=== PATIENT | female | born 1990 | race Caucasian/White ===

== ENCOUNTER 2016-09-01 08:28 | Emergency (ER) | payer OTHER ==
[~2016-09-01 08:28] MED LIST: PHENERGAN25 MG PR
[2016-09-01 09:09] LABS: BILIRUBIN 1+ mg/dL (NEGATIVE); BLOOD 1+ Ery/uL (NEGATIVE); CLARITY CLEAR (CLEAR); COLOR AMBER (YELLOW); GLUCOSE (U) NORMAL (NORMAL); KETONE (U) 2+ (MODERATE) mg/dL (NEGATIVE); LEUKOCYTES NEGATIVE Leu/uL (NEGATIVE); NITRITE NEGATIVE (NEGATIVE); PROTEIN 1+ mg/dL (NEGATIVE); SPECIFIC GRAVITY >=1.030 (1.001-1.030)
[2016-09-01 09:12] LABS: BACTERIA TRACE; URINARY WBC RARE
[2016-09-01 09:13] LABS: MUCOUS TRACE
[2016-09-01 09:23] LABS: BASOPHIL 0.3 % (0-2); EOSINOPHIL 0 % (0-5); HCT 45.4 % (37.0-47.0); LYMPHOCYTE 13.8 % (15-48); MCH 30.8 pg (25.0-31.0); MCHC 35.2 g/dL (32.0-36.0); MCV 87.5 fL (78.0-100.0); MONOCYTE 5.1 % (0-12); MPV 9.3 fL (6.0-9.5); NEUTROPHIL 80.8 % (41-80); PLT 412 K/uL (150-400); RBC 5.19 M/uL (4.20-5.40); RDW 13.7 % (11.5-14.0); WBC 13.1 K/uL (4.0-10.5)
[2016-09-01 09:44] LABS: ALBUMIN 4.6 g/dL (3.5-5.0); BILIRUBIN - TOTAL 0.9 mg/dL (0.1-1.0); CREATININE 0.7 mg/dL (0.5-1.0); POTASSIUM 3.6 mmol/L (3.5-5.1); TOTAL PROTEIN 7.6 g/dL (6.4-8.3)
== END 2016-09-01 10:45 | disposition home or self-care (01) ==
LOC: FER 08:28
PROVIDERS: Emergency Medicine
DX: K31.84 Gastroparesis (principal); K81.9 Cholecystitis, unspecified
CPT/HCPCS: 36415; 80053; 81001; 83690; 84443; 85025; J2405

== ENCOUNTER 2016-09-24 12:43 | Emergency (ER) | payer OTHER ==
[2016-09-24 13:36] LABS: BILIRUBIN 1+ mg/dL (NEGATIVE); BLOOD 2+ Ery/uL (NEGATIVE); CLARITY CLEAR (CLEAR); COLOR YELLOW (YELLOW); GLUCOSE (U) NORMAL (NORMAL); KETONE (U) 2+ (MODERATE) mg/dL (NEGATIVE); LEUKOCYTES NEGATIVE Leu/uL (NEGATIVE); NITRITE NEGATIVE (NEGATIVE); PROTEIN 1+ mg/dL (NEGATIVE); SPECIFIC GRAVITY >=1.030 (1.001-1.030); pH 5.5 (5.0-9.0)
[2016-09-24 13:45] LABS: AMORPHOUS URATES CRYSTALS TRACE; BACTERIA 1+
[2016-09-24 13:54] LABS: BASOPHIL 0.1 % (0-2); EOSINOPHIL 0.2 % (0-5); HCT 44.5 % (37.0-47.0); HGB 15.9 g/dl (12.5-16.0); LYMPHOCYTE 6.9 % (15-48); MCH 30.5 pg (25.0-31.0); MCHC 35.7 g/dL (32.0-36.0); MCV 85.4 fL (78.0-100.0); MONOCYTE 2.5 % (0-12); MPV 9.5 fL (6.0-9.5); NEUTROPHIL 90.3 % (41-80); PLT 498 K/uL (150-400); RBC 5.21 M/uL (4.20-5.40); RDW 12.8 % (11.5-14.0)
[2016-09-24 13:56] LABS: WBC 18.3 K/uL (4.0-10.5)
[2016-09-24 14:12] LABS: ALBUMIN 5.3 g/dL (3.5-5.0); BILIRUBIN - TOTAL 0.7 mg/dL (0.1-1.0); CREATININE 0.7 mg/dL (0.5-1.0); GLOBULIN (CALCULATION) 2.7 g/dL (2.2-4.2); POTASSIUM 3.5 mmol/L (3.5-5.1)
[2016-09-24 14:28] LABS: LACTIC ACID 2.2 mmol/L (0.5-2.2)
[2016-09-24 14:40] LABS: BAND 2 % (0-10); LYMPHOCYTE(M) 6 % (15-48); MONOCYTE(M) 1 % (0-12); NEUTROPHILS(M) 91 % (41-80); PLATELET ESTIMATE NORMAL; PLATELET MORPHOLOGY NORMAL; TOTAL CELL COUNT 100
[2016-09-24 18:20] LABS: AMPHETAMINES NEGATIVE (NEGATIVE); BARBITURATES NEGATIVE (NEGATIVE); BENZODIAZEPINES NEGATIVE (NEGATIVE); COCAINE NEGATIVE (NEGATIVE); MARIJUANA (THC) POSITIVE (NEGATIVE); METHADONE NEGATIVE (NEGATIVE); TRICYCLIC ANTIDEPRESSANT NEGATIVE (NEGATIVE)
== END 2016-09-24 19:16 | disposition home or self-care (01) ==
LOC: FER 12:43
PROVIDERS: Internal Medicine; Nurse Practitioner
DX: N83.202 Unspecified ovarian cyst, left side (principal)
CPT/HCPCS: 36415; 76705; 80053; 80305; 81001; 82150; 83605; 83690; 87040; 87339; J2405; J2543; J2765; Q9967

== ENCOUNTER 2016-12-03 10:54 | Day surgery (SDCO) | payer OTHER ==
[~2016-12-03] VITALS: Ht 160 cm; Wt 68.9 kg
[2016-12-03 11:25] LABS: BILIRUBIN 2+ mg/dL (NEGATIVE); BLOOD 1+ Ery/uL (NEGATIVE); CLARITY CLEAR (CLEAR); COLOR YELLOW (YELLOW); GLUCOSE (U) NORMAL (NORMAL); KETONE (U) 3+ (LARGE) mg/dL (NEGATIVE); LEUKOCYTES NEGATIVE Leu/uL (NEGATIVE); NITRITE NEGATIVE (NEGATIVE); PROTEIN NEGATIVE (NEGATIVE); SPECIFIC GRAVITY 1.025 (1.001-1.030); pH 5.5 (5.0-9.0)
[2016-12-03 11:39] LABS: BASOPHIL 0.2 % (0-2); EOSINOPHIL 0.1 % (0-5); HGB 17.4 g/dl (12.5-16.0); MCH 31.5 pg (25.0-31.0); MCV 85.1 fL (78.0-100.0); MONOCYTE 8.9 % (0-12); NEUTROPHIL 71.8 % (41-80); PLT 471 K/uL (150-400); RBC 5.52 M/uL (4.20-5.40); RDW 13.6 % (11.5-14.0); WBC 13.6 K/uL (4.0-10.5)
[2016-12-03 11:44] LABS: AMPHETAMINES NEGATIVE (NEGATIVE); BARBITURATES NEGATIVE (NEGATIVE); BENZODIAZEPINES NEGATIVE (NEGATIVE); COCAINE NEGATIVE (NEGATIVE); MARIJUANA (THC) NEGATIVE (NEGATIVE); METHADONE NEGATIVE (NEGATIVE); TRICYCLIC ANTIDEPRESSANT NEGATIVE (NEGATIVE)
[2016-12-03 12:01] LABS: BILIRUBIN - TOTAL 1.1 mg/dL (0.1-1.0); CREATININE 0.8 mg/dL (0.5-1.0); GLOBULIN (CALCULATION) 3.2 g/dL (2.2-4.2); POTASSIUM 2.8 mmol/L (3.5-5.1); TOTAL PROTEIN 8.2 g/dL (6.4-8.3)
[2016-12-03 12:19] LABS: BACTERIA TRACE; MUCOUS TRACE
[2016-12-04 05:46] LABS: HCT 42.9 % (37.0-47.0); HGB 15.3 g/dl (12.5-16.0); MCHC 35.7 g/dL (32.0-36.0); MPV 10.4 fL (6.0-9.5); RBC 4.93 M/uL (4.20-5.40); RDW 13.6 % (11.5-14.0); WBC 9.6 K/uL (4.0-10.5)
[2016-12-04 06:22] LABS: CREATININE 0.7 mg/dL (0.5-1.0)
[2016-12-05 11:32] LABS: CHLORIDE 99 mmol/L (98-107); CREATININE 0.7 mg/dL (0.5-1.0); GLUCOSE 118 mg/dL (70-105); POTASSIUM 3.4 mmol/L (3.5-5.1)
[2016-12-05 11:33] LABS: BUN <3.0 mg/dL (6-25)
== END 2016-12-05 15:24 | disposition home or self-care (01) ==
LOC: FER 10:54 → FMS 12:45
PROVIDERS: Nurse Practitioner; ADMIT Internal Medicine
DX: R11.2 Nausea with vomiting, unspecified (principal); E87.6 Hypokalemia; F41.9 Anxiety disorder, unspecified; F32.9 Major depressive disorder, single episode, unspecified; Z80.1 Family history of malignant neoplasm of trachea, bronchus and lung; Z83.79 Family history of other diseases of the digestive system; Z81.8 Family history of other mental and behavioral disorders; Z79.899 Other long term (current) drug therapy
CPT/HCPCS: 36415; 74000; 80048; 80053; 80305; 81001; 82150; 83690; 84443; 85025; 93005; C9113; G0378; J2405; J2765

== ENCOUNTER 2016-12-12 08:49 | Inpatient (IN) | payer OTHER ==
[~2016-12-12] VITALS: Ht 160 cm; Wt 70.0 kg
[2016-12-12 09:17] LABS: BILIRUBIN 2+ mg/dL (NEGATIVE); BLOOD 1+ Ery/uL (NEGATIVE); CLARITY HAZY (CLEAR); COLOR YELLOW (YELLOW); GLUCOSE (U) NORMAL (NORMAL); KETONE (U) 2+ (MODERATE) mg/dL (NEGATIVE); LEUKOCYTES NEGATIVE Leu/uL (NEGATIVE); NITRITE NEGATIVE (NEGATIVE); PROTEIN 2+ mg/dL (NEGATIVE); SPECIFIC GRAVITY >=1.030 (1.001-1.030)
[2016-12-12 09:18] LABS: BASOPHIL 0.4 % (0-2); EOSINOPHIL 0.6 % (0-5); HCT 45.2 % (37.0-47.0); LYMPHOCYTE 21.5 % (15-48); MCH 32.1 pg (25.0-31.0); MCHC 37.6 g/dL (32.0-36.0); MCV 85.3 fL (78.0-100.0); MONOCYTE 9.1 % (0-12); NEUTROPHIL 68.4 % (41-80); PLT 401 K/uL (150-400); RDW 13.8 % (11.5-14.0); WBC 11.9 K/uL (4.0-10.5)
[2016-12-12 09:19] LABS: AMORPHOUS URATES CRYSTALS TRACE; MUCOUS MODERATE; SQUAMOUS EPITHELIAL CELLS RARE; URINARY RBC RARE; URINARY WBC RARE
[2016-12-12 09:32] LABS: ALBUMIN 4.9 g/dL (3.5-5.0); CREATININE 0.8 mg/dL (0.5-1.0); GLOBULIN (CALCULATION) 2.8 g/dL (2.2-4.2); POTASSIUM 3.3 mmol/L (3.5-5.1); TOTAL PROTEIN 7.7 g/dL (6.4-8.3)
[2016-12-12 11:30] LABS: INR 1.01 (0.9-1.2); PROTHROMBIN TIME 12.9 SECONDS (11.7-14.0); PTT 30.9 SECONDS (23.2-31.4)
[2016-12-12 11:40] LABS: LACTIC ACID 1.6 mmol/L (0.5-2.2)
[2016-12-12 21:05] LABS: CREATININE 0.6 mg/dL (0.5-1.0); MAGNESIUM 1.69 mg/dL (1.40-2.10); POTASSIUM 3.2 mmol/L (3.5-5.1)
[2016-12-13 04:14] LABS: AMPHETAMINES NEGATIVE (NEGATIVE); BARBITURATES NEGATIVE (NEGATIVE); COCAINE NEGATIVE (NEGATIVE); METHADONE NEGATIVE (NEGATIVE); TRICYCLIC ANTIDEPRESSANT NEGATIVE (NEGATIVE)
[2016-12-13 04:15] LABS: MARIJUANA (THC) POSITIVE (NEGATIVE)
[2016-12-13 04:16] LABS: BENZODIAZEPINES NEGATIVE (NEGATIVE)
[2016-12-13 05:34] LABS: BASOPHIL 0.2 % (0-2); EOSINOPHIL 1.2 % (0-5); HCT 35.5 % (37.0-47.0); LYMPHOCYTE 30.9 % (15-48); MCH 31.8 pg (25.0-31.0); MCHC 36.6 g/dL (32.0-36.0); MCV 86.8 fL (78.0-100.0); MONOCYTE 10.7 % (0-12); MPV 10.2 fL (6.0-9.5); PLT 340 K/uL (150-400); RBC 4.09 M/uL (4.20-5.40); RDW 13.5 % (11.5-14.0); WBC 8.3 K/uL (4.0-10.5)
[2016-12-13 05:59] LABS: ALBUMIN 3.5 g/dL (3.5-5.0); CREATININE 0.6 mg/dL (0.5-1.0); GLOBULIN (CALCULATION) 2.2 g/dL (2.2-4.2); MAGNESIUM 1.71 mg/dL (1.40-2.10); PHOSPHORUS 2.4 mg/dL (2.7-4.5); POTASSIUM 2.8 mmol/L (3.5-5.1); TOTAL PROTEIN 5.7 g/dL (6.4-8.3)
[2016-12-13 17:41] LABS: BUN <3.0 mg/dL (6-25); CHLORIDE 94 mmol/L (98-107); CREATININE 0.6 mg/dL (0.5-1.0); GLUCOSE 166 mg/dL (70-105); MAGNESIUM 1.48 mg/dL (1.40-2.10); POTASSIUM 3.4 mmol/L (3.5-5.1)
[2016-12-14 06:09] LABS: HCT 36.9 % (37.0-47.0); HGB 13.4 g/dl (12.5-16.0); MCH 31.7 pg (25.0-31.0); MCHC 36.3 g/dL (32.0-36.0); MCV 87.2 fL (78.0-100.0); MPV 10.4 fL (6.0-9.5); RBC 4.23 M/uL (4.20-5.40); RDW 13.5 % (11.5-14.0); WBC 12.8 K/uL (4.0-10.5)
[2016-12-14 06:34] LABS: BUN <3.0 mg/dL (6-25); CHLORIDE 98 mmol/L (98-107); CREATININE 0.6 mg/dL (0.5-1.0); GLUCOSE 135 mg/dL (70-105); MAGNESIUM 2.04 mg/dL (1.40-2.10); POTASSIUM 4.2 mmol/L (3.5-5.1)
[2016-12-14] MEDS ORDERED: PROTONIX 40MG T40 MG PO (11:10)
[2016-12-14] MEDS ORDERED: PHENERGAN12.5 M1 PO (13:54)
[2016-12-14] MEDS ORDERED: CARAFATE1 GM PO (13:54)
[2016-12-14] MEDS ORDERED: BENTYL10 MG PO (13:54)
[2016-12-14] MEDS ORDERED: ZOFRAN ODT4 MG SL (13:55)
== END 2016-12-14 14:18 | disposition home or self-care (01) | DRG 418 ==
LOC: FER 08:49 → FMS 10:44
PROVIDERS: Allergy & Immunology; Emergency Medicine; Internal Medicine Nephrology; Surgery; ADMIT Internal Medicine
PROC: 0FT44ZZ Resection of Gallbladder, Percutaneous Endoscopic Approach (ICD-10-PCS; principal; 2016-12-13 10:30)
DX: K81.1 Chronic cholecystitis (principal); E87.2 Acidosis; E87.6 Hypokalemia; K82.9 Disease of gallbladder, unspecified; K82.8 Other specified diseases of gallbladder; K66.0 Peritoneal adhesions (postprocedural) (postinfection)
CPT/HCPCS: 36415; 36600; 71010; 76705; 80048; 80053; 80305; 81001; 82803; 83605; 83690; 83735; 84100; 84484; 85025; 85610; 85730; 88304; 93005; C9113; J1170; J2270; J2405; J2704; J2710; J3010; J3475; J3480; Q9962

== ENCOUNTER 2020-07-22 05:58 | Emergency (ER) | payer OTHER ==
[~2020-07-22 05:58] MED LIST changes: +BENTYL10 MG PO; +CARAFATE1 GM PO; +PHENERGAN12.5 M1 PO; +PROTONIX 40MG T40 MG PO; +ZOFRAN ODT4 MG SL
[2020-07-22 07:15] LABS: BASOPHIL 0.3 % (0-2); EOSINOPHIL 0.2 % (0-5); HCT 42.7 % (37.0-47.0); HGB 14.7 g/dl (12.5-16.0); LYMPHOCYTE 10.9 % (15-48); MCH 31.7 pg (25.0-31.0); MCHC 34.4 g/dL (32.0-36.0); MCV 92.2 fL (78.0-100.0); MONOCYTE 5.9 % (0-12); MPV 10.1 fL (6.0-9.5); NEUTROPHIL 81.8 % (41-80); NRBC 0; PLT 434 K/uL (150-400); RBC 4.63 M/uL (4.20-5.40); RDW 12.7 % (11.5-14.0); WBC 18.4 K/uL (4.0-10.5)
[2020-07-22 07:19] LABS: BILIRUBIN 1+ mg/dL (NEGATIVE); BLOOD TRACE-INTACT Ery/uL (NEGATIVE); CLARITY CLEAR (CLEAR); COLOR YELLOW (YELLOW); GLUCOSE (U) NORMAL (NORMAL); LEUKOCYTES TRACE Leu/uL (NEGATIVE); NITRITE NEGATIVE (NEGATIVE); PROTEIN 1+ mg/dL (NEGATIVE); SPECIFIC GRAVITY 1.015 (1.001-1.030)
[2020-07-22 07:25] LABS: URINARY WBC 20-50
[2020-07-22 07:26] LABS: BACTERIA 1+
[2020-07-22 07:27] LABS: BUN/CREAT RATIO (CALC) 23.6 RATIO; CREATININE 0.55 mg/dL (0.51-0.95); POTASSIUM 3.3 mmol/L (3.5-5.1)
[2020-07-22] MEDS ORDERED: ONDANSETRON ODT4 MG PO (07:53)
== END 2020-07-22 07:54 | disposition home or self-care (01) ==
LOC: FER 05:58
PROVIDERS: Emergency Medicine
DX: O21.0 Mild hyperemesis gravidarum (principal); Z3A.08 8 weeks gestation of pregnancy
CPT/HCPCS: 36415; 80048; 81001; 85025; J2550; J7120